=== PATIENT | male | born 1965 | race Caucasian/White ===

== ENCOUNTER 2017-12-03 08:13 | Outpatient (CLI) | payer OTHER ==
[2017-12-03 08:59] LABS: BASOPHILS % (AUTO) 0.3 % (0-1); EOSINOPHILS # (AUTO) 0.3 X10'3 (0-0.9); EOSINOPHILS % (AUTO) 5.2 % (0-6); HEMATOCRIT 42.8 % (42.0-52.0); HEMOGLOBIN 14.7 g/dl (14.0-17.9); LYMPHOCYTES # (AUTO) 1.4 X10'3 (1.1-4.8); LYMPHOCYTES % (AUTO) 20.2 % (21-51); MEAN CORPUSCULAR HEMOGLOBIN 30.9 PG (27.0-31.0); MEAN CORPUSCULAR HGB CONC 34.4 % (33.0-36.5); MEAN CORPUSCULAR VOLUME 89.6 FL (78-98); MEAN PLATELET VOLUME 7.6 FL (7.4-10.4); MONOCYTES # (AUTO) 0.5 X10'3 (0-0.9); MONOCYTES % (AUTO) 6.7 % (2-12); NEUTROPHILS # (AUTO) 4.5 X10'3 (1.8-7.7); NEUTROPHILS % (AUTO) 67.6 % (42-75); PLATELET COUNT 227 X10'3 (140-440); RED BLOOD COUNT 4.77 X10'6 (4.70-6.10); WHITE BLOOD COUNT 6.7 X10'3 (4.5-11.0)
[2017-12-03 09:00] LABS: CLARITY,URINE SLIGHTLY CLOUDY (Clear); COLOR,URINE YELLOW (Yellow); GLUCOSE, URINE NEGATIVE (Neg); KETONES,URINE NEGATIVE (Neg); LEUKOCYTE ESTERASE ,URINE NEGATIVE (Neg); NITRITES, URINE NEGATIVE (Neg); OCCULT BLOOD,URINE TRACE-LYSED (Neg); PH,URINE 5.5 (4.8-8.0); PROTEIN,URINE NEGATIVE (Neg); UROBILINOGEN,URINE 0.2 E.U/dL (0.2-1.0)
[2017-12-03 09:01] LABS: UA COLLECTION TYPE VOIDED
[2017-12-03 09:06] LABS: BACTERIA,URINE FEW /HPF (Neg); HYALINE CASTS 0-3 /LPF (NEGATIVE); MUCUS STRANDS FEW /LPF (Neg); RBC,URINE 0-2 /HPF (0-2); SQUAMOUS EPITHELIAL CELL,UR FEW /LPF (FEW); WBC,URINE 0-4 /HPF (0-4)
[2017-12-03 09:21] LABS: ALANINE AMINOTRANSFERASE 60 U/L (12-78); ALBUMIN 3.9 G/DL (3.4-5.0); ALBUMIN/GLOBULIN RATIO 1.1 (1.1-1.5); ALKALINE PHOSPHATASE 70 IU/L (46-116); ANION GAP 11 (8-16); ASPARTATE AMINO TRANSFERASE 27 U/L (10-37); BILIRUBIN,TOTAL 0.5 MG/DL (0.1-1.0); BLOOD UREA NITROGEN 20 MG/DL (7-18); BUN/CREATININE RATIO 23.5 (5.4-32.0); CALCIUM 8.7 MG/DL (8.5-10.1); CHLORIDE 107 MMOL/L (99-107); CHOLESTEROL 188 MG/DL (0-200); CREATININE 0.85 MG/DL (0.60-1.10); GLUCOSE 110 MG/DL (70-104); HDL CHOLESTEROL 63 MG/DL (35-60); LDL CHOLESTEROL 112 MG/DL (50-100); POTASSIUM 4.4 MMOL/L (3.5-5.1); SODIUM 143 MMOL/L (135-145); TOTAL PROTEIN 7.5 G/DL (6.4-8.2); TRIGLYCERIDES 64 MG/DL (20-135); eGFR > 90 ML/MIN
== END 2017-12-03 23:59 | disposition home or self-care (01) ==
LOC: LAB 08:13
PROVIDERS: ATTEND Family Medicine
DX: K92.1 Melena (principal); Z76.89 Persons encountering health services in other specified circumstances
CPT/HCPCS: 36415; 80053; 80061; 81001; 82306; 84439; 84443; 85025

== ENCOUNTER 2018-02-26 08:51 | Day surgery (SDC) | payer OTHER ==
[~2018-02-26] VITALS: Ht 185.4 cm; Wt 103.6 kg
[2018-02-26] MEDS ORDERED: fentaNYL/PF 50MCG/1 ML 2ML syringe ONE (09:15)
[2018-02-26] MEDS ORDERED: MIDAZolam 5mg/5ml vial ONE (09:16)
[2018-02-26 09:18] VITALS: BP 134/75
[2018-02-26 10:09] VITALS: BP 134/85
[2018-02-26 10:19] VITALS: BP 123/84
[2018-02-26 10:29] VITALS: BP 124/80
[2018-02-26 10:39] VITALS: BP 139/65
== END 2018-02-26 10:45 | disposition home or self-care (01) ==
LOC: GI LAB 08:51
PROVIDERS: ATTEND Internal Medicine Gastroenterology
DX: D12.4 Benign neoplasm of descending colon (principal); K64.8 Other hemorrhoids; K62.5 Hemorrhage of anus and rectum; Z72.89 Other problems related to lifestyle; Z86.11 Personal history of tuberculosis
CPT/HCPCS: 45385; 99152; J2250; J3010; J7030; 50555; 99153; A4620

== ENCOUNTER 2018-09-23 06:24 | Day surgery (SDC) | payer OTHER ==
[2018-09-23] VITALS (14 sets, daily range): BP systolic 116–185; BP diastolic 80–104
[~2018-09-23] VITALS: Ht 182.9 cm; Wt 95.3 kg
[~2018-09-23 06:24] MED LIST: NO HOME MEDS
[2018-09-23] MEDS ORDERED: famotidine 20mg tablet PO ONE (07:00)
[2018-09-23] MEDS ORDERED: ringers solution, lacted 1,000 ML IV SCH ×2 (07:00→07:05)
[2018-09-23] MEDS ORDERED: cefazolin/dext.iso 2gm/100 ML IV ONE (07:03)
[2018-09-23] MEDS ORDERED: morphine 4 MG/ML inj SYRINge IV PRN (07:05)
[2018-09-23] MEDS ORDERED: ondansetron/PF 4mg/2ml inj IV PRN (07:05)
[2018-09-23] MEDS ORDERED: labetalol 20mg/4ml (5mg/ml) syringe IV PRN (07:05)
[2018-09-23] MEDS ORDERED: hydrALAZINE 20mg/ml inj. IV PRN (07:05)
[2018-09-23] MEDS ORDERED: fentaNYL/PF 50MCG/1 ML 2ML syringe IV PRN ×2 (07:05)
[2018-09-23] MEDS ORDERED: BUPIVAcaine/PF 2.5mg/ml (0.25%) 10ml vial ONE (07:16)
[2018-09-23] MEDS ORDERED: ceFAZolin 1000mg inj ONE (07:16)
[2018-09-23 07:19] LABS: CLARITY,URINE CLEAR (Clear); COLOR,URINE YELLOW (Yellow); GLUCOSE, URINE NEGATIVE (Neg); KETONES,URINE NEGATIVE (Neg); LEUKOCYTE ESTERASE ,URINE NEGATIVE (Neg); NITRITES, URINE NEGATIVE (Neg); OCCULT BLOOD,URINE TRACE-INTACT (Neg); PH,URINE 5.5 (4.8-8.0); PROTEIN,URINE NEGATIVE (Neg); UROBILINOGEN,URINE 0.2 E.U/dL (0.2-1.0)
[2018-09-23 07:24] LABS: BASOPHILS % (AUTO) 0.9 % (0-1); EOSINOPHILS # (AUTO) 0.3 X10'3 (0-0.9); EOSINOPHILS % (AUTO) 6.4 % (0-6); LYMPHOCYTES # (AUTO) 1.3 X10'3 (1.1-4.8); LYMPHOCYTES % (AUTO) 24.8 % (21-51); MEAN CORPUSCULAR HEMOGLOBIN 31.7 PG (27.0-31.0); MEAN CORPUSCULAR HGB CONC 34.1 g/dL (33.0-36.5); MEAN PLATELET VOLUME 7.4 FL (7.4-10.4); MONOCYTES # (AUTO) 0.5 X10'3 (0-0.9); MONOCYTES % (AUTO) 9.8 % (2-12); NEUTROPHILS # (AUTO) 3.1 X10'3 (1.8-7.7); NEUTROPHILS % (AUTO) 58.1 % (42-75); PRE OP HEMATOCRIT 42.1 % (42.0-52.0); PRE OP HEMOGLOBIN 14.4 g/dL (14.0-17.9); PRE OP PLATELET COUNT 193 X10'3 (140-440); RED BLOOD COUNT 4.53 X10'6 (4.70-6.10); RED CELL DISTRIBUTION WIDTH 13.4 % (11.5-14.5)
[2018-09-23 07:33] LABS: ALBUMIN 3.7 G/DL (3.4-5.0); ALBUMIN/GLOBULIN RATIO 1.1 (1.1-1.5); ALKALINE PHOSPHATASE 58 IU/L (46-116); BLOOD UREA NITROGEN 19 MG/DL (7-18); BUN/CREATININE RATIO 24.1 (5.4-32.0); CALCIUM 8.9 MG/DL (8.5-10.1); CHLORIDE 106 MMOL/L (99-107); CREATININE 0.79 MG/DL (0.60-1.10); PRE OP ALT 32 U/L (30-65); PRE OP ANION GAP 8 (8-16); PRE OP AST 18 U/L (10-37); PRE OP BILIRUB, TOTAL 0.4 MG/DL (0.0-1.0); PRE OP GLUCOSE 99 MG/DL (70-104); PRE OP POTASSIUM 4.3 MMOL/L (3.4-5.1); PRE OP SODIUM 139 MMOL/L (135-145); TOTAL CARBON DIOXIDE 24.6 MMOL/L (24-32); eGFR > 90 ML/MIN
[2018-09-23 08:01] LABS: UA COLLECTION TYPE CLN CATCH MIDSTREAM
[2018-09-23 08:02] LABS: HYALINE CASTS 0-3 /LPF (NEGATIVE); MUCUS STRANDS MODERATE /LPF (Neg); SQUAMOUS EPITHELIAL CELL,UR FEW /LPF (FEW)
[2018-09-23 08:03] LABS: BACTERIA,URINE FEW /HPF (Neg); RBC,URINE 0-2 /HPF (0-2)
[2018-09-23] MEDS ORDERED: sevoflurane 250ml liquid IH ONE (08:35)
[2018-09-23] MEDS ORDERED: midazolam 2 mg/2 ml injection ONE (08:43)
[2018-09-23] MEDS ORDERED: fentaNYL/PF 50MCG/1 ML 2ML syringe ONE (08:43)
[2018-09-23] MEDS ORDERED: glycopyrrolate 0.2mg/ml inj ONE (08:50)
[2018-09-23] MEDS ORDERED: LIDOcaine 2% (20mg/ml) 5ml vial ONE (08:50)
[2018-09-23] MEDS ORDERED: propofol inj 20 ML IV ONE (08:50)
[2018-09-23] MEDS ORDERED: rocuronium 10mg/ml inj IV ONE ×2 (08:50→09:16)
[2018-09-23] MEDS ORDERED: neostigmine methylsulfate 1 MG/ML 10ml vial ONE (08:50)
[2018-09-23] MEDS ORDERED: dexamethasone sod phosphate 4mg/ml inj. ONE (08:50)
[2018-09-23] MEDS ORDERED: ondansetron/PF 4mg/2ml inj ONE (08:50)
[2018-09-23] MEDS ORDERED: morphine 10mg/ml inj. ONE ×2 (09:17→09:32)
[2018-09-23] MEDS ORDERED: labetalol 20mg/4ml (5mg/ml) syringe IV ONE ×2 (09:20→09:35)
--- NOTE | 2018-09-23 09:46 | NUR ---
Received from OR via clarence, accompanied by Anesthesiologist Bennett and report given by Anesthesiolgist. Pt to Os mask at 10L, eyes open responding to stimuli, 20G left hand 100cc/hr. Lap sites x3, two with bandaids and umbilical with guaze and tegaderm. BP high and MD at bedside states to follow orders for bringing BP down.
[2018-09-23] MEDS: morphine 4 MG/ML inj SYRINge IV PRN ×3 (10:05→10:31)
[2018-09-23] MEDS ORDERED: HYDROcodone/acetaminophen 10/325mg tab PO ONE (11:10)
--- NOTE | 2018-09-23 12:16 | NUR ---
After voiding, patient discharged from PACU by wheelchair to vehicle with no incident. Pt alert and oriented, VS stable, pain down to a 4-5/10 patient states tolerable. PO meds given one hour prior to discharge and prescription delivered by [facility] bedside program. Pt and state they understand discharge criteria, dressings remain CDI. IV discontinued without incident. All belongings remain with patient for discharge and patient dressed in his own clothes. Pt knows to follow up in 2 weeks for appointment.
== END 2018-09-23 12:16 | disposition home or self-care (01) ==
LOC: PAS 06:24
PROVIDERS: ATTEND Surgery
DX: K42.9 Umbilical hernia without obstruction or gangrene (principal); I10 Essential (primary) hypertension; F12.90 Cannabis use, unspecified, uncomplicated; Z98.890 Other specified postprocedural states; Z72.89 Other problems related to lifestyle
CPT/HCPCS: 36415; 49652; 80053; 81001; 85025; 87088; 93005; C1758; C1781; J0360; J0690; J1100; J2001; J2250; J2270; J2405; J2704; J2710; J3010; J3490; J7120; A4215; A4618; A7000

== ENCOUNTER 2020-09-20 20:02 | Emergency (ER) | payer BC, OTHER ==
[~2020-09-20] VITALS: Ht 182.9 cm; Wt 89.1 kg
[2020-09-20 20:13] VITALS: BP 139/96
[2020-09-20] MEDS ORDERED: amox tr/potassium clavulanate 875/125mg TAB PO ONE (21:05)
[2020-09-20] MEDS ORDERED: AMOX-117 PO (21:06)
== END 2020-09-20 21:19 | disposition home or self-care (01) ==
LOC: ER 20:02
DX: S61.531A Puncture wound without foreign body of right wrist, initial encounter (principal); L03.113 Cellulitis of right upper limb; M25.531 Pain in right wrist; Z98.890 Other specified postprocedural states; Z79.2 Long term (current) use of antibiotics; W55.01XA Bitten by cat, initial encounter; Y93.89 Activity, other specified; Y92.89 Other specified places as the place of occurrence of the external cause; Y99.8 Other external cause status
CPT/HCPCS: 99283

== ENCOUNTER 2024-04-14 07:58 | Outpatient (CLI) | payer BC ==
[2024-04-14 08:31] LABS: BASOPHILS % (AUTO) 0.4 % (0-1); EOSINOPHILS # (AUTO) 0.4 X10'3 (0-0.9); EOSINOPHILS % (AUTO) 4.8 % (0-6); HEMATOCRIT 43.4 % (42.0-52.0); HEMOGLOBIN 14.7 g/dl (14.0-17.9); LYMPHOCYTES # (AUTO) 1.9 X10'3 (1.1-4.8); LYMPHOCYTES % (AUTO) 24.2 % (21-51); MEAN CORPUSCULAR HEMOGLOBIN 31.7 PG (27.0-31.0); MEAN CORPUSCULAR HGB CONC 33.8 g/dL (33.0-36.5); MEAN CORPUSCULAR VOLUME 93.7 FL (78-98); MEAN PLATELET VOLUME 7.4 FL (7.4-10.4); MONOCYTES # (AUTO) 0.6 X10'3 (0-0.9); NEUTROPHILS # (AUTO) 4.9 X10'3 (1.8-7.7); NEUTROPHILS % (AUTO) 62.6 % (42-75); PLATELET COUNT 285 X10'3 (140-440); RED BLOOD COUNT 4.63 X10'6 (4.70-6.10); RED CELL DISTRIBUTION WIDTH 13.3 % (11.5-14.5); WHITE BLOOD COUNT 7.9 X10'3 (4.5-11.0)
[2024-04-14 08:56] LABS: HEMOGLOBIN A1C 5.7 % (4.5-6.2)
[2024-04-14 09:30] LABS: ALANINE AMINOTRANSFERASE 42 U/L (12-78); ALBUMIN 3.8 G/DL (3.4-5.0); ALBUMIN/GLOBULIN RATIO 1.1 (1.1-1.5); ALKALINE PHOSPHATASE 57 IU/L (46-116); ANION GAP 13 (8-16); ASPARTATE AMINO TRANSFERASE 25 U/L (10-37); BILIRUBIN,TOTAL 0.3 MG/DL (0.1-1.0); BLOOD UREA NITROGEN 19 MG/DL (7-18); BUN/CREATININE RATIO 24.1 (10.0-20.0); CHLORIDE 105 MMOL/L (99-107); CHOL/HDL RATIO 3.6 (0.00-4.99); CHOLESTEROL 194 MG/DL (0-200); CREATININE 0.79 MG/DL (0.60-1.10); GLUCOSE 111 MG/DL (70-104); HDL CHOLESTEROL 54 MG/DL (35-60); LDL CHOLESTEROL 112 MG/DL (50-100); POTASSIUM 4.7 MMOL/L (3.5-5.1); SODIUM 140 MMOL/L (135-145); THYROID STIMULATING HORMONE 2.21 ulU/ml (0.34-4.50); TOTAL CARBON DIOXIDE 21.9 MMOL/L (24-32); TOTAL PROTEIN 7.4 G/DL (6.4-8.2); TRIGLYCERIDES 76 MG/DL (20-135); eGFR > 90 ML/MIN
[2024-04-15 11:10] LABS: % FREE PSA 10.3 % (.); PSA, FREE 0.31 ng/mL
== END 2024-04-14 23:59 | disposition home or self-care (01) ==
LOC: RAD 07:58
PROVIDERS: ATTEND Family Medicine
DX: Z13.220 Encounter for screening for lipoid disorders (principal); Z13.29 Encounter for screening for other suspected endocrine disorder; Z13.1 Encounter for screening for diabetes mellitus; Z12.5 Encounter for screening for malignant neoplasm of prostate
CPT/HCPCS: 36415; 80053; 80061; 83036; 84153; 84154; 84443; 85025

== ENCOUNTER 2025-02-22 14:14 | Outpatient (CLI) | payer OTHER ==
--- NOTE | 2025-02-22 14:43 | RADIOLOGY REPORT ---
CLINICAL HISTORY: Encounter for screening for respiratory tuberculosis TECHNIQUE: Chest 2 views of the chest were obtained. COMPARISON: DI CHEST,TWO VIEWS on DOS: 12/28/24 FINDINGS: The heart size and pulmonary vasculature are normal. The lungs are clear. No pleural effusion is present. IMPRESSION: NO ACUTE CARDIOPULMONARY PROCESS.
== END 2025-02-22 23:59 | disposition home or self-care (01) ==
LOC: RAD 14:14
PROVIDERS: ATTEND Internal Medicine Infectious Disease
DX: Z11.1 Encounter for screening for respiratory tuberculosis (principal)
CPT/HCPCS: 71046